=== PATIENT | male | born 1955 | race Caucasian/White ===

== ENCOUNTER 2018-03-31 16:49 | Emergency (ER) | payer BC ==
[~2018-03-31] VITALS: Ht 175.2 cm; Wt 93.0 kg
[~2018-03-31 16:49] MED LIST: ASPIRIN81 M1 PO; BRILINTA; BRILINTA PO; FLEXERIL10 MG PO; HYDROCODONE BIT1 T11 PO; LISINOPRIL2.5 MG PO; Lopressor25 MG PO; MULTI VITAMINS1 TAB PO; NIACIN PO; PAXIL10 MG PO; PREDNICOT20 MG PO; RESTORIL30 MG PO; SIMVASTATIN20 MG PO; VICODIN 5/500 505 MG PO; VITAMIN B121000 MCG PO; XANAX0.5 MG PO; [UNRECOGNIZED DRUG - OTHER]; [UNRECOGNIZED DRUG - REMARK]
[2018-03-31 16:50] VITALS: BP 149/80
[2018-03-31] MEDS ORDERED: FLAGYL500 MG PO (18:24)
[2018-03-31] MEDS ORDERED: SEPTDS PO (18:24)
== END 2018-03-31 18:38 | disposition home or self-care (01) ==
LOC: ED 16:49
DX: S41.151A Open bite of right upper arm, initial encounter (principal); S81.851A Open bite, right lower leg, initial encounter; Z23 Encounter for immunization; Z79.82 Long term (current) use of aspirin; Z79.899 Other long term (current) drug therapy; Z88.0 Allergy status to penicillin; W54.0XXA Bitten by dog, initial encounter; Y93.89 Activity, other specified; Y92.89 Other specified places as the place of occurrence of the external cause; Y99.8 Other external cause status

== ENCOUNTER → 2021-11-13 | Outpatient (CLI) | payer MEDICARE ==
[~2021-11-13] MED LIST changes: +ATARAX,VISTARIL50 MG PO; +FLAGYL500 MG PO; +PLAVIX75 M1 PO; +SEPTDS PO
== END | disposition home or self-care (01) ==
LOC: CARD 01:17
PROVIDERS: ATTEND Internal Medicine Cardiovascular Disease
DX: R06.02 Shortness of breath (principal); R06.00 Dyspnea, unspecified

== ENCOUNTER → 2022-12-24 | Outpatient (CLI) | payer MEDICARE | END | disposition home or self-care (01) | LOC: CARD 12-18 10:00 | PROVIDERS: ATTEND Internal Medicine Cardiovascular Disease | DX: I49.3 Ventricular premature depolarization (principal); I49.1 Atrial premature depolarization; Z86.79 Personal history of other diseases of the circulatory system ==

== ENCOUNTER → 2023-05-20 | Outpatient (CLI) | payer MEDICARE | END | disposition home or self-care (01) | LOC: US 15:33 | PROVIDERS: ATTEND Internal Medicine | DX: R42 Dizziness and giddiness (principal) ==

== ENCOUNTER → 2023-06-03 | Outpatient (CLI) | payer MEDICARE | END | disposition home or self-care (01) | LOC: US 01:15 | PROVIDERS: ATTEND Internal Medicine | DX: N28.1 Cyst of kidney, acquired (principal); N18.30 Chronic kidney disease, stage 3 unspecified; Z96.0 Presence of urogenital implants ==

== ENCOUNTER → 2024-09-21 | Outpatient (CLI) | payer MEDICARE | END | disposition home or self-care (01) | LOC: RAD 13:01 | PROVIDERS: ATTEND Internal Medicine | DX: M79.641 Pain in right hand (principal); M79.642 Pain in left hand ==

== ENCOUNTER 2024-11-27 21:11 | Emergency (ER) | payer MEDICARE ==
[~2024-11-27] VITALS: Ht 175.2 cm; Wt 94.8 kg
[2024-11-27 21:25] VITALS: BP 134/85
[2024-11-27] MEDS ORDERED: Ketorolac Tromethamine 15 MG/ML VIAL IV ONE (21:45)
[2024-11-27] MEDS ORDERED: MORPHINE Sulfate 2 MG/ML SYR IV ONE (21:45)
[2024-11-27] MEDS ORDERED: Dexamethasone Sodium Phospha 20 MG/5 ML VIAL IV ONE (21:45)
[2024-11-27] MEDS ORDERED: SODIUM CHLORIDE 0.9% 1,000 ML IV ONE (21:45)
[2024-11-27] MEDS ORDERED: Ondansetron Hydrochloride 4 MG/2 ML VIAL IV ONE (21:45)
[2024-11-27 22:08] LABS: BASO # 0.1 10*3/uL (0.0-0.1); BASO % 0.9 % (0.0-1.0); EOS # 0.1 10*3/uL (0.0-0.4); HEMATOCRIT 44.6 % (42.0-52.0); MEAN CELL VOLUME 87.3 fl (80.0-94.0); MEAN CORPUSCULAR HGB 29.2 pg (27.0-31.0); MEAN CORPUSCULAR HGB CONC 33.4 g/dl (33.0-37.0); MONO # 0.6 10*3/uL (0.1-1.0); MONO % 8.9 % (3.0-9.0); NEUT # 4.6 10*3/uL (2.3-7.9); NEUT % 72.1 % (47.0-73.0); PLATELET COUNT AUTOMATED 180 10*3/uL (130-400); RED BLOOD COUNT 5.11 10*6/uL (4.50-5.90); RED CELL DISTRI WIDTH 13.1 % (0-14.5); WHITE BLOOD COUNT 6.4 10*3/uL (4.8-10.8)
[2024-11-27 22:28] LABS: POTASSIUM 3.4 mmol/L (3.4-5.1); TOTAL PROTEIN 7.4 gm/dL (6.0-8.0)
[2024-11-27] MEDS ORDERED: METHOCARBAMOL750 M1 PO (23:36)
[2024-11-27] MEDS ORDERED: PREDNISONE20 M1 PO (23:36)
[2024-11-27] MEDS ORDERED: VIBRAMYCIN100 MG PO (23:36)
[2024-11-27] MEDS ORDERED: Doxycycline Hyclate 100 MG CAPSULE PO ONE (23:40)
[2024-11-28] MEDS ORDERED: VIBRAMYCIN100 MG PO ×2 (00:14)
[2024-11-28] MEDS ORDERED: PREDNISONE20 M1 PO ×2 (00:14)
[2024-11-28] MEDS ORDERED: METHOCARBAMOL750 M1 PO ×2 (00:14)
== END 2024-11-28 00:08 | disposition home or self-care (01) ==
LOC: ED 21:11
PROVIDERS: Emergency Medicine
DX: S70.361A Insect bite (nonvenomous), right thigh, initial encounter (principal); R53.1 Weakness; M79.10 Myalgia, unspecified site; R10.9 Unspecified abdominal pain; Z88.0 Allergy status to penicillin; Z79.899 Other long term (current) drug therapy; Z79.82 Long term (current) use of aspirin; Z95.5 Presence of coronary angioplasty implant and graft; W57.XXXA Bitten or stung by nonvenomous insect and other nonvenomous arthropods, initial encounter; Y93.89 Activity, other specified; Y92.89 Other specified places as the place of occurrence of the external cause; Y99.8 Other external cause status